=== PATIENT | female | born 1970 | race Caucasian/White ===

== ENCOUNTER → 2017-01-03 | Outpatient (CLI) | payer OTHER ==
--- NOTE | 2017-01-03 08:08 | US ---
EXAMINATION TYPE: US transvaginal DATE OF EXAM: 01/03/2017 COMPARISON: NONE CLINICAL HISTORY: Menometorragia N92.1. Patient states she is having heavy and long periods of bleedi ng TECHNIQUE: Transvaginal (TV) Date of LMP: About a month ago EXAM MEASUREMENTS: Uterus: 8.5 x 5.1 x 6.0 cm Endometrial Stripe: 0.6 cm Right Ovary: 2.7 x 1.1 x 1.4 cm Left Ovary: 1.7 x 0.9 x 1.2 cm 1. Uterus: Anteverted Bulky and heterogeneous. Multiple hypoechoic areas visualized, largest measu ring 3.1 x 3.0 x 2.8 cm, probably fibroids 2. Endometrium: wnl 3. Right Ovary: wnl as visualized, limited visualization due to overlying bowel 4. Left Ovary: Cystic area visualized measuring 0.7 x 0.7 x 0.6 cm 5. Bilateral Adnexa: wnl 6. Posterior cul-de-sac: wnl IMPRESSION: 1. Enlarged uterus with scattered hypoechoic areas which can be compatible with fibroids. The largest is approximately 3 cm in size.
== END | disposition home or self-care (01) ==
LOC: RADUSWWP 07:28
PROVIDERS: ATTEND Obstetrics & Gynecology
DX: N85.2 Hypertrophy of uterus (principal)
CPT/HCPCS: 76830

== ENCOUNTER → 2017-01-04 | Outpatient (CLI) | payer OTHER ==
--- NOTE | 2017-01-04 17:15 | MR ---
EXAMINATION TYPE: MR foot LT wo con DATE OF EXAM: 01/04/2017 COMPARISON: NONE HISTORY: Lt foot swelling, lump, post-op ganglion cyst removal. Extensor digitorum brevis nonhealing to bone versus possible ganglion cyst. Standard multiplanar, multisequence MRI departmental protocol Multiplanar, multisequence images of the left foot were acquired. Diffusion weighted imaging was perf ormed. FINDINGS: Superficial to the second cuneiform and deep to the superficial marker at the site of patie nt's known swelling there is a T2 hyperintense and T1 hypointense well-circumscribed multiloculated c ystic lesion representing a ganglion cyst. This is seen just deep to and elevates the extensor digito rum brevis. This measures 1.1 x 0.6 x 1.5 cm in transverse by anterior posterior by craniocaudal dime nsion. There is no localized edema within the osseous structures postoperatively. Degenerative changes demonstrated as osseous cysts are seen of the calcaneus at the sustentaculum vitaliy i. Ankle joint maintains normal alignment. Joint spaces are maintained. Flexor tendons appear unremarkab le. IMPRESSION: Multiloculated 1.1 cm ganglion cyst just superficial to the second cuneiform and elevating the extens or digitorum brevis.
== END ==
LOC: RADMRIMAIN 14:47
PROVIDERS: ATTEND Podiatrist Foot & Ankle Surgery
DX: M67.472 Ganglion, left ankle and foot (principal)

== ENCOUNTER → 2017-01-10 | Outpatient (CLI) | payer OTHER ==
[2017-01-10 15:52] LABS: CHCM 33.4; HCT 41.4 % (34.0-46.0); HDW 2.31; HGB 13.6 gm/dL (11.4-16.0); MCH 30.7 pg (25.0-35.0); MCHC 32.9 g/dL (31.0-37.0); MCV 93.4 fL (80.0-100.0); Mean Platelet Volume 7.8; RBC 4.43 m/uL (3.80-5.40); WBC 7.3 k/uL (3.8-10.6)
[2017-01-10 18:32] LABS: Estradiol 50.5 pg/mL
== END | disposition home or self-care (01) ==
LOC: LABWHC1 15:21
PROVIDERS: ATTEND Obstetrics & Gynecology
DX: N93.8 Other specified abnormal uterine and vaginal bleeding (principal)
CPT/HCPCS: 36415; 82670; 83001; 85027

== ENCOUNTER → 2017-01-24 | Outpatient (CLI) | payer OTHER ==
[2017-01-24 12:41] LABS: Basophils % (A) 0 %; CH 30.7; CHCM 33.1; Eosinophils # (A) 0.3 k/uL (0-0.7); Eosinophils % (A) 3 %; HCT 44.2 % (34.0-46.0); HGB 14.4 gm/dL (11.4-16.0); Luc # (Auto) 0.18; Luc % (Auto) 2; Lymphocytes # (A) 2.7 k/uL (1.0-4.8); Lymphocytes % (A) 27 %; MCH 30.3 pg (25.0-35.0); MCHC 32.5 g/dL (31.0-37.0); MCV 93.2 fL (80.0-100.0); Mean Platelet Volume 7.8; Monocytes # (A) 0.6 k/uL (0-1.0); Monocytes % (A) 7 %; Neutrophils # (A) 5.9 k/uL (1.3-7.7); Neutrophils % (A) 61 %; RBC 4.75 m/uL (3.80-5.40); RDW 12.9 % (11.5-15.5); WBC 9.7 k/uL (3.8-10.6); WBC (Perox) 9.71
[2017-01-24 13:10] LABS: Potassium 4.7 mmol/L (3.5-5.1)
== END | disposition home or self-care (01) ==
LOC: LABPAT 12:14
PROVIDERS: ATTEND Orthopaedic Surgery
DX: Z01.812 Encounter for preprocedural laboratory examination (principal); M75.41 Impingement syndrome of right shoulder
CPT/HCPCS: 36415; 80051; 85025

== ENCOUNTER 2017-02-08 06:25 | Day surgery (SDC) | payer OTHER ==
[2017-02-05 10:10] VITALS: BMI 24.1
--- NOTE | 2017-02-07 09:57 | HP ---
HISTORY AND PHYSICAL CHIEF COMPLAINT: Right shoulder pain. 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 She is having persistent pain with overhead use and at night. She has tried therapy in addition to medications with partial temporary relief. She is still significantly limited. PAST MEDICAL HISTORY: Past medical history is otherwise negative. PAST SURGICAL HISTORY: Significant for left hip arthroscopy and left foot surgery. CURRENT MEDICATIONS: Ibuprofen and control. ALLERGIES: She denies drug allergies. FAMILY HISTORY: Significant for cancer. SOCIAL HISTORY: Negative for current tobacco or alcohol use. REVIEW OF SYSTEMS: Sixteen-point review of systems otherwise reviewed and is noncontributory. PHYSICAL EXAMINATION: On examination, the patient is approximately 5 feet 1 inch, 128 pounds of mesomorphic habitus. HEENT exam is nonfocal. Neck is supple. On examination of the right shoulder, she is tender about the anterior subacromial space. She has mild subacromial crepitus. Active range of motion forward elevation 135 degrees, external rotation with the arm at side 65 degrees, internal rotation to T12. Passively I am able to forward elevate her to 150 degrees. External rotation with the arm at side is 5- over 5. Abduction is 5- over 5. Impingement, Neer tests are positive. Her distal neurovascular exam otherwise appears intact in the right upper extremity. MRI report for the right shoulder from 01/02/2017 shows evidence of a partial tear of the supraspinatus. IMPRESSION: Right shoulder impingement with symptomatic rotator cuff tear. RECOMMENDATIONS: I talked to the patient at length regarding her treatment options. At this point, she is quite symptomatic despite conservative measures. After thorough discussion, she opts to proceed with surgery. We will plan to proceed with arthroscopic evaluation with probable subacromial decompression in addition to possible arthroscopic rotator cuff repair versus debridement. Risks and benefits were discussed at length in layman's terms. We will likely perform that as an outpatient procedure. MMODL / IJN: [id number] /
[~2017-02-08 06:25] MED LIST: DEXAMETHASONE SOD PHOSPHATE 10 MG/ML 1 ML VIAL IV ONE; HYDROmorphone 0.5 MG/0.5 ML SYRINGE IVP PRN; LACTATED RINGERS 1,000 ML IV SCH; MIDAZOLAM 2 MG/2 ML VIAL IV PRN; ONDANSETRON 4 MG/2 ML VIAL IVP ONE; ceFAZolin 1,000 MG in DEXTROSE/WATER 1 50ML.BAG IV ONE
[2017-02-08 07:09] VITALS: RESP 16
[2017-02-08] MEDS ORDERED: LIDOCAINE 1% 20 ML VIAL (10MG/ML) FOR IV START INTRADERMA ONE (07:11)
[2017-02-08] MEDS ORDERED: MIDAZOLAM 2 MG/2 ML VIAL IVP ONE (07:20)
[2017-02-08] MEDS ORDERED: fentaNYL (PF) 50 MCG/ML 2 ML AMP IVP ONE (07:27)
--- NOTE | 2017-02-08 07:50 | P.ONQ ---
Anesthesiology Proc Note - PNB - Peripheral Nerve Block Performed Right Interscalene Indication: Acute Post-Operative Pain, Requested by physician (DR Barrera) Sedation Type: Sedate with meaningful contact maintained Preparation: Sterile Prep Position: Supine Catheter: None Needle Types: Other (see comment) (Yonathan) Needle Size: 50mm (2") Technique: Ultrasound Injectate: 0.5% Ropivacaine (see comment for volume) (13cc Ropivacaine, 13cc Lidocaine 2%) Adjunct: Epinephrine (see comment for dilution ratio) (1:100,00) Blood Aspirated: No Pain Paresthesia on Injection Noted: No Resistance on Injection: Normal Events: Uneventful and Well Tolerated
[2017-02-08] MEDS ORDERED: SUCCINYLCHOLINE CHLORIDE 100 MG/5 ML SYR IV ONE (08:00)
[2017-02-08] MEDS ORDERED: LIDOCAINE 1% INJ 10MG/ML (20 ML MDV) ONE (08:00)
[2017-02-08] MEDS ORDERED: PHENYLEPHRINE-0.9% NACL SYG 1 MG/10 ML SYRINGE ONE (08:00)
[2017-02-08] MEDS ORDERED: LIDOCAINE 2%-EPI 1:100,000 20 ML VIAL ONE (08:00)
[2017-02-08] MEDS ORDERED: MIDAZOLAM 2 MG/2 ML VIAL ONE (08:00)
[2017-02-08] MEDS ORDERED: ePHEDrine SULFATE/0.9% NACL/PF 50 MG/5 ML SYRINGE IV ONE (08:00)
[2017-02-08] MEDS ORDERED: PROPOFOL 10 MG/ML 20 ML VIAL IV ONE (08:00)
[2017-02-08] MEDS ORDERED: fentaNYL (PF) 50 MCG/ML 2 ML AMP ONE (08:00)
[2017-02-08] MEDS ORDERED: ROPIVACAINE 5 MG/ML 30 ML VIAL ONE (08:00)
[2017-02-08] MEDS ORDERED: EPINEPHrine (PF) 1 ML in SODIUM CHLORIDE 0.9% IRRIGATIO 3,000 ML IRRIGATION ONE ×8 (08:29)
[2017-02-08] MEDS ORDERED: LACTATED RINGERS 1,000 ML IV ONE (08:45)
[2017-02-08 09:27] VITALS: TEMP 97.3
--- NOTE | 2017-02-08 09:30 | P.OP ---
Date of Procedure: 02/08/17 Preoperative Diagnosis: symptomatic right rotator cuff tear Postoperative Diagnosis: 1 cm rotator cuff tear involving the supraspinatus/type II SLAP lesion/ bicipital tendinosis Procedure(s) Performed: right shoulder arthroscopic subacromial decompression/rotator cuff repair/ biceps tenotomy/superior labral debridement Implants: Mitek 4.75 mm corkscrew anchor Anesthesia: ALEX, jarod Surgeon: Darrel Barrera Motion Graphics Designer #1: Kunal Santacruz Estimated Blood Loss (ml): 10 Pathology: none sent Condition: stable Disposition: PACU Indications for Procedure: The patient's a 46-year-old [id number] female who presents with progressive right shoulder pain after a previous fall. She tried extensive conservative treatment with persistence of her symptoms. A discussion of the risks and benefits of operative intervention versus continued conservative measures was made with the patient. She opted to proceed with surgery. Operative risks to include infection, neurovascular injury, development of blood clots, possible tendon rerupture, possible postoperative stiffness and need for subsequent procedures was discussed. Informed consent was obtained. Operative Findings: as below Description of Procedure: the patient was brought to the operating room, and after induction of general anesthesia was placed into a beachchair position. The bony prominences were appropriately padded. I examined the right shoulder. There was no gross block to passive motion. There is no gross glenohumeral instability. The right upper extremity was prepped and draped in normal fashion. The bony outlines the acromion, distal clavicle, and coracoid process were outlined with a skin marker. The glenoid humeral joint was inflated with 50 mL of saline utilizing a spinal needle from posterior approach. A posterior portal was made through a 5 mm skin incision 1 cm medial and inferior to the posterior lateral border of the acromion. A blunt trocar was used to easily into the joint. Diagnostic arthroscopy was performed. An anterior portals made just lateral to the coracoid process entering the joint above the subscapularis tendon. On inspection the anterior labrum that was intact. The subscapularis was intact. On inspection superior labrum there was a type II SLAP lesion with instability. There is also significant intra-articular biceps tendinosis. it was elected to proceed with tenotomy at this point. The biceps tendon was released from the superior labrum with electrocautery allowed to retract the bicipital groove. The superior labrum was debrided back to stable base with a motorized shaver. The posterior labrum was intact. No significant chondral injury involving humeral head or glenoid was noted. The inferior recess was inspected. the rotator cuff was inspected. There was a full-thickness tear involving the anterior aspect the supraspinatus. The edges were debrided with a motorized shaver. The arthroscope was then placed into the subacromial space.a lateral portal was made through a 5 minute incision 2 cm inferior to the anterolateral border of the acromion. The soft tissue on the undersurface the acromion was debrided with a motorized shaver and with electrocautery clearly defining the anterior medial and lateral borders as well as the distal clavicle. The coracoacromial ligament was detached from the anterior acromion with electrocautery. An anterior inferior acromioplasty is performed with a motorized tono starting anterolateral, then extending this posteriorly, then extending this medially. Is able to convert to a flat acromion. This was verified from the posterior and lateral viewing portals. The rotator cuff was inspected. The bursal tissue was debrided with a motorized shaver. the rotator cuff was inspected. The rotator cuff tear involving the anterior supraspinatus measuring proximal 1 cm was clearly defined. The soft tissue over the greater tuberosity was removed with a motorized shaver lightly decorticating the tuberosity.the rotator cuff was easily mobilized back to its [place] footprint. A scorpion suture passer was used to pass a fiber tape through the rotator cuff. An additional fiber Link was passed. A lateral anchor was placed utilizing the appropriate starting awl. The lateral anchor was 4.75 mm in diameter. The suture was appropriately tensioned. Good purchase was obtained. Final arthroscopic view showed adequate mu-ism of the [place] footprint with compression. The arthroscope was then removed. The portals were closed with simple 3-0 nylon suture. A sterile dressing was applied in addition to a brace. The patient was awoken from general anesthesia and transferred to the recovery room in good condition. Blood loss was estimated at 10 mL. No complications were incurred. Sponge and needle counts were correct in the case.
[2017-02-08] MEDS ORDERED: MEPERIDINE 50 MG/ML SYRINGE IVP ONE (09:50)
[2017-02-08 11:19] VITALS: BP 135/79; PULSE 80
== END 2017-02-08 12:01 | disposition home or self-care (01) ==
LOC: OR 06:25
PROVIDERS: ATTEND Orthopaedic Surgery
DX: M75.101 Unspecified rotator cuff tear or rupture of right shoulder, not specified as traumatic (principal); S43.431A Superior glenoid labrum lesion of right shoulder, initial encounter; X58.XXXA Exposure to other specified factors, initial encounter; M75.21 Bicipital tendinitis, right shoulder; Z79.3 Long term (current) use of hormonal contraceptives; Z79.1 Long term (current) use of non-steroidal anti-inflammatories (NSAID); Z79.2 Long term (current) use of antibiotics; Z79.891 Long term (current) use of opiate analgesic; Z88.5 Allergy status to narcotic agent
CPT/HCPCS: 29826; 29827; 64415; 81025; C1713 ×2; C1894; J2250; J1100; J2175; J2405; J0171; J2001; J3010; J0690; J2795; J2370; J0330; J2704

== ENCOUNTER 2017-02-22 05:59 | Day surgery (SDC) | payer OTHER ==
[2017-02-20 13:51] VITALS: BMI 24.1
--- NOTE | 2017-02-21 08:29 | P.HPOB ---
History of Present Illness H&P Date: 02/21/17 Chief Complaint: Menorrhagia, uterine fibroids This patient is a pleasant 46 yr female who has had persistent menorrhagia and DUB. Evaluation has show multiple small fibroids and a normal endometrial biopsy. She has been on OCPs without relief. She now presents for an endometrial ablation for further treatment. Review of Systems Constitutional: Denies chills, Denies fever Cardiovascular: Denies chest pain, Denies shortness of breath Respiratory: Denies cough Gastrointestinal: Denies abdominal pain, Denies diarrhea, Denies nausea, Denies vomiting Genitourinary: Reports as per HPI, Reports menorrhagia Menstruation: Reports menses 8 or > days, Reports menses variable, Reports period heavy Past Medical History Past Medical History: Asthma, Osteoarthritis (OA) Additional Past Medical History / Comment(s): irregular menses; uterine fibroids , genital HSV History of Any Multi-Drug Resistant Organisms: None Reported Past Surgical History: Section, Orthopedic Surgery Additional Past Surgical History / Comment(s): tendon release left hip, LT foot surg. RT ROTATOR CUFF SX-02/08/17; ovarin cystectomy Past Anesthesia/Blood Transfusion Reactions: Postoperative Nausea & Vomiting ( PONV) Smoking Status: Never smoker Past Alcohol Use History: None Reported Past Drug Use History: None Reported - Past Family History Father Family Medical History: Cancer Medications and Allergies Home Medications Medication Instructions Recorded Confirmed Type Ibuprofen 1 tab PO TID PRN 02/08/17 02/20/17 History Allergies Allergy/AdvReac Type Severity Reaction Status Date / Time morphine AdvReac Nausea & Verified 02/20/17 13:46 Vomiting Exam - OBG Physical Exam Abdomen: bowel sounds normal, no diffuse tenderness, no bruit present, no guarding noted, no hepatomegaly, no splenomegaly, no mass Vagina: normal moisture, no discharge Cervix: no lesion, no discharge Uterus: enlarged Adnexa: both: normal Results Endometrial biopsy on 01/10/2017 was normal, possible polyp. Ultrasound on 2016 showed multiple fibroids, largest 3cm. Assessment and Plan (1) Menorrhagia Narrative/Plan: This is a pleasant 46 yr female with persistent menorrhagia/DUB and known uterine fibroids. She is presenting for hysteroscopy, D&C, and Novasure endometrial ablation for treatment. I have discussed this surgery and risks: infection, bleeding, possible uterine perforation and/or thermal injury. All of the patients questions were answered and a written consent obtained. Status: Chronic Code(s): N92.0 - EXCESSIVE AND FREQUENT MENSTRUATION WITH REGULAR CYCLE SNOMED Code(s): 602826597 (2) Uterine fibroid Status: Chronic Code(s): D25.9 - LEIOMYOMA OF UTERUS, UNSPECIFIED SNOMED Code(s): 25296093
[~2017-02-22 05:59] MED LIST changes: -HYDROmorphone 0.5 MG/0.5 ML SYRINGE IVP PRN; -LACTATED RINGERS 1,000 ML IV SCH; +Pre Op ABX Message 1 EACH MISC MISCELLANE ONE; +SCOPOLAMINE 1.5MG/72HR PATCH TRANSDERM ONE; -ceFAZolin 1,000 MG in DEXTROSE/WATER 1 50ML.BAG IV ONE; +fentaNYL (PF) 50 MCG/ML 2 ML AMP IV PRN
[2017-02-22 06:26] VITALS: TEMP 98.8
[2017-02-22] MEDS: LACTATED RINGERS 1,000 ML IV SCH ×2 (06:40→09:11)
[2017-02-22] MEDS ORDERED: LIDOCAINE 1% 20 ML VIAL (10MG/ML) FOR IV START INTRADERMA ONE (06:41)
[2017-02-22] MEDS ORDERED: fentaNYL (PF) 50 MCG/ML 2 ML AMP ONE (06:49)
[2017-02-22] MEDS ORDERED: KETOROLAC 30 MG/ML 1 ML VIAL ONE (06:49)
[2017-02-22] MEDS ORDERED: PROPOFOL 10 MG/ML 20 ML VIAL IV ONE (06:49)
[2017-02-22] MEDS ORDERED: MIDAZOLAM 2 MG/2 ML VIAL ONE (06:49)
[2017-02-22] MEDS ORDERED: LIDOCAINE 1% INJ 10MG/ML (20 ML MDV) ONE (06:49)
--- NOTE | 2017-02-22 07:35 | P.OP ---
Date of Procedure: 02/22/17 Preoperative Diagnosis: menorrhagia and uterine fibroids Postoperative Diagnosis: same Procedure(s) Performed: #1:hysteroscopy. #2: Dilation and curettage. #3: NovaSure endometrial ablation. Anesthesia: MAC Surgeon: Jerry Caballero Estimated Blood Loss (ml): 5 Urine output (ml): 10 Pathology: other (uterine curettings) Condition: stable Disposition: PACU Indications for Procedure: Please see dictated H&P for intimate details of this patient's admission. Brief summary this is a pleasant 46-year-old multiparous patient who's had refractory menorrhagia, dysfunctional uterine bleeding, and known uterine fibroids. Patient presents now for trial of NovaSure endometrial ablation for treatment. Patient does understand the surgery and risks including risks of infection, bleeding, possible uterine perforation, and/or thermal injury. All the patient's questions are answered and a written consent is obtained. Operative Findings: this patient had a normal-appearing endometrial cavity there was some impingement of the endometrium by uterine fibroids. Description of Procedure: This patient is taken to the operating room and laid in the supine position. She subsequently undergoes general mask anesthesia without incident. At this time we carefully position her because she's had 2 orthopedic surgeries in the last 4 weeks. She is carefully placed in the dorsal lithotomy position. A vaginal perineal prep was then done. Examination under anesthesia shows the uterus to be mid position and slightly enlarged. This time I drain the bladder for 10 mL of clear urine. Weighted speculum was placed in the posterior vagina. The anterior lip of the cervix at that time was then grasped with an Allis clamp. I gently sound the uterus to 9 cm. The endocervix was then dilated enough to allow the hysteroscope easily and the uterine cavity. Hysteroscopy is then performed with saline solution. The endometrial cavity does not show any polyps. There is some impingement of her fibroids and endometrial cavity but in general it appears mostly clear. At this time the cervix is dilated more to allow a small curette easily uterine cavity. A gentle but thorough 4 quadrant curettage is then done. With this completed the NovaSure device is then opened it appears to be intact. It is set at a length of 6.0 cm. It is seated in place to a width of 3.3 cm. It is then enabled for approximately 57 seconds after passing the cavity integrity test. The NovaSure device is then removed and appears to be intact. Hysteroscopy is then performed again and the uterine cavity appears to be completely ablated up to the endocervix. With this done the procedure is then ended. The Allis clamp and weighted speculum were removed. All counts are correct 3. There are no complications. Patient is awakened from anesthesia and taken to the recovery room in satisfactory condition.
[2017-02-22 07:50] VITALS: RESP 18
[2017-02-22] MEDS ORDERED: Acetaminophen-Codeine 300-30mg TAB PO ONE (09:02)
[2017-02-22 09:53] VITALS: BP 123/74; PULSE 78
== END 2017-02-22 09:55 | disposition home or self-care (01) ==
LOC: OR 05:59
PROVIDERS: ATTEND Obstetrics & Gynecology
DX: N85.01 Benign endometrial hyperplasia (principal); N92.0 Excessive and frequent menstruation with regular cycle; D25.9 Leiomyoma of uterus, unspecified; J45.909 Unspecified asthma, uncomplicated; M19.90 Unspecified osteoarthritis, unspecified site; Z88.5 Allergy status to narcotic agent; Z86.19 Personal history of other infectious and parasitic diseases; Z80.9 Family history of malignant neoplasm, unspecified
CPT/HCPCS: 58563; 81025; 88305; J2250; J1100; J2405; J2001; J3010; J1885; J2704

== ENCOUNTER → 2017-04-16 | Outpatient (CLI) | payer OTHER ==
[2017-04-16 13:37] LABS: Basophils # (A) 0.1 k/uL (0-0.2); Basophils % (A) 1 %; Eosinophils # (A) 0.2 k/uL (0-0.7); Eosinophils % (A) 2 %; HCT 42.8 % (34.0-46.0); HGB 13.8 gm/dL (11.4-16.0); Lymphocytes # (A) 2.1 k/uL (1.0-4.8); Lymphocytes % (A) 25 %; MCH 29.4 pg (25.0-35.0); MCHC 32.2 g/dL (31.0-37.0); MCV 91.2 fL (80.0-100.0); Mean Platelet Volume 7.6; Monocytes # (A) 0.5 k/uL (0-1.0); Monocytes % (A) 6 %; Neutrophils # (A) 5.5 k/uL (1.3-7.7); Neutrophils % (A) 65 %; Platelet Count 316 k/uL (150-450); RDW 13.4 % (11.5-15.5); WBC 8.4 k/uL (3.8-10.6)
[2017-04-16 13:40] LABS: Anion Gap 8 mmol/L; Blood Urea Nitrogen 16 mg/dL (7-17); Calcium 9.9 mg/dL (8.4-10.2); Carbon Dioxide 30 mmol/L (22-30); Chloride 103 mmol/L (98-107); Glucose 98 mg/dL (74-99); Potassium 4.8 mmol/L (3.5-5.1); Sodium 141 mmol/L (137-145)
== END | disposition home or self-care (01) ==
LOC: LABPAT 13:12
PROVIDERS: ATTEND Obstetrics & Gynecology
DX: Z01.812 Encounter for preprocedural laboratory examination (principal)
CPT/HCPCS: 36415; 80048; 85025; 86850; 86900; 86901

== ENCOUNTER 2017-04-22 06:29 | Day surgery (SDC) | payer OTHER ==
[2017-04-10 10:12] VITALS: BMI 24.1
[~2017-04-22 06:29] MED LIST changes: +LIDOCAINE 1% 20 ML VIAL (10MG/ML) FOR IV START INTRADERMA PRN; -MIDAZOLAM 2 MG/2 ML VIAL IV PRN; -Pre Op ABX Message 1 EACH MISC MISCELLANE ONE; +ceFAZolin IN SWFI 2 GM/20 ML SYRINGE IVP ONE; -fentaNYL (PF) 50 MCG/ML 2 ML AMP IV PRN
[2017-04-22] MEDS: LACTATED RINGERS 1,000 ML IV SCH ×2 (07:05→20:13)
[2017-04-22] MEDS ORDERED: MIDAZOLAM 2 MG/2 ML VIAL IV ONE (07:11)
[2017-04-22] MEDS ORDERED: BUPIVACAINE (PF) 0.25% 30 ML VIAL SQ ONE ×2 (07:31→08:11)
[2017-04-22] MEDS ORDERED: SODIUM CHLORIDE 0.9% 50 ML with ceFAZolin 2,000 MG IV ONE ×2 (07:43)
[2017-04-22] MEDS ORDERED: HYDROmorphone (PF) 1 MG/ML ONE (07:43)
[2017-04-22] MEDS ORDERED: PROPOFOL 10 MG/ML 20 ML VIAL IV ONE (07:43)
[2017-04-22] MEDS ORDERED: NEOSTIGMINE 1 MG/ML 10 ML VIAL ONE (07:43)
[2017-04-22] MEDS ORDERED: GLYCOPYRROLATE 0.2 MG/ML 2 ML VIAL ONE (07:43)
[2017-04-22] MEDS ORDERED: ESMOLOL 100 MG/10 ML VIAL ONE (07:43)
[2017-04-22] MEDS ORDERED: SUCCINYLCHOLINE CHLORIDE 100 MG/5 ML SYR IV ONE (07:43)
[2017-04-22] MEDS ORDERED: ePHEDrine SULFATE/0.9% NACL/PF 50 MG/5 ML SYRINGE IV ONE (07:43)
[2017-04-22] MEDS ORDERED: MIDAZOLAM 2 MG/2 ML VIAL ONE (07:43)
[2017-04-22] MEDS ORDERED: LIDOCAINE 1% INJ 10MG/ML (20 ML MDV) ONE (07:43)
[2017-04-22] MEDS ORDERED: fentaNYL (PF) 50 MCG/ML 2 ML AMP ONE (07:43)
[2017-04-22] MEDS ORDERED: VECURONIUM 10 MG VIAL IV ONE (07:43)
[2017-04-22] MEDS ORDERED: SIMETHICONE 80 MG CHEWABLE PO PRN (09:15)
[2017-04-22] MEDS ORDERED: ONDANSETRON 4 MG/2 ML VIAL IVP PRN (09:15)
[2017-04-22] MEDS ORDERED: Acetaminophen-Codeine 300-30mg TAB PO PRN ×2 (09:15)
--- NOTE | 2017-04-22 09:25 | P.OP ---
Date of Procedure: 04/22/17 Preoperative Diagnosis: Complex hyperplasia with pelvic pain Postoperative Diagnosis: Same with significant adhesions of the sigmoid colon to the left ovary and posterior uterus Procedure(s) Performed: Robotic-assisted laparoscopic hysterectomy with lysis of adhesions Anesthesia: ALEX Surgeon: Pascual Lee Financial Legal Assistant #1: Myrtle Garcia Estimated Blood Loss (ml): 300 IV fluids (ml): 650 Urine output (ml): 75 Pathology: other (Uterus cervix fallopian tubes and ovaries) Condition: stable Disposition: floor Operative Findings: Significant adhesions of the omentum and sigmoid colon to the left ovary and posterior uterus also noted fibroid on the posterior uterus Description of Procedure: Patient was taken to the operating suite where a general anesthetic was found be adequate. She was prepped and draped in normal sterile fashion and placed in dorsal lithotomy position. Initially a weighted speculum was inserted into the vagina and the anterior lip of the cervix was identified and grasped with a single-tooth tenaculum. Cervix was then dilated and sounded to 10 cm. Using a 10 cm down and a 3 cm cup the Rhiannon manipulator was inserted without difficulty with sutures placed at 3 and 9 to help removal of the uterus. Speculum and tenaculum were then removed and a Tavarez cath was placed. Gloves were changed and attention was turned to the abdominal portion of the procedure where 2 mL of quarter percent Marcaine was injected periumbilically. Through this injected anesthetic a 5 mm skin incision was made and through this incision under direct visualization with an optical trocar and sleeve the camera was inserted. Once peritoneal placement was assured gas allowed to fully insufflate the abdomen and patient's placement steep Trendelenburg position. First right and left ports were placed through 8 mm skin incisions 10 cm lateral to the umbilicus these were inserted under direct visualization and were da [place]man ports. A fourth port and sleeve were inserted through a 1 cm incision between the left lateral and medial port. Once ports were placed robot was brought in and docked and the one arm a scissor was placed in the 2 arm a [place] grasper. At this point I broke scrub console. Observations pelvis were noted. Significant adhesions of the omentum and sigmoid colon were noted to be present attached to the left ovary and posterior uterus these were bluntly and sharply dissected free by elevating the tissues and them gently. Occasionally cauterization was done to clear some of the adhesions. Mostly these were filmy and were easily dissected out of the operative field. Once this was completed did did allow for visualization of the infundibular pelvic ligament which was then identified cauterized and cut broad and the tissues moving superiorly towards the uterus were also cauterized and cut allowing us to free the left ovary. Round ligament was then identified cauterized and cut and the anterior posterior leafs of the broad ligament were transected and bluntly dissected and sharply dissected to skeletonize the vascularity. Vessel left sided uterus was then cauterized. Bladder flap was then identified and undermined with [place] and incised with scissors. This tissue was carried across face of the uterus in a similar fashion to remove the bladder from the operative field. Once accomplished attention was turned the right side of the uterus which in similar fashion tissues were developed. Once both sides were matched balloon was blown up in the Rhinanon manipulator and an anterior colpotomy was made. Following a likewise motion cheating head when necessary to help maintain hemostasis the cup was followed around incising with the scissor circumferentially. There was some bleeding noted from a blood vessel along the left border of the uterus along the pedicle which was cauterized with [place] grasper. Once 360 was completed uterus was brought into the vagina to maintain pneumoperitoneum. Pelvis was then irrigated this fluid was suctioned out. Once hemostasis was felt to be adequate instruments were exchanged for a Luis grasper and a make suture cut and the vaginal cuff was closed in a running fashion with to OB lock suture. Once this was accomplished pelvis was again irrigated once excellent hemostasis was felt to be obtained instruments were removed and gas was allowed to expel from the abdomen. 5 deep breaths provided during this process and Dr. Garcia then closed incision subcuticularly and the remaining 8 mL of quarter percent Marcaine was injected around these incisions. At the same time I did do a cystoscopy and excellent flow was noted from both ureteral jets. Tavarez cath was then replaced sponge, lap, needle counts were all correct 2. Patient was then taken to the recovery room in stable and satisfactory condition.
[2017-04-22] MEDS: HYDROmorphone 0.5 MG/0.5 ML SYRINGE IVP PRN ×4 (09:31→09:57)
[2017-04-22] MEDS: KETOROLAC 30 MG/ML 1 ML VIAL IVP PRN ×2 (11:12→16:27)
[2017-04-22] MEDS ORDERED: SENNOSIDES-DOCUSATE SODIUM 1 EACH TAB PO SCH (21:00)
[2017-04-23 08:18] VITALS: BP 99/60; PULSE 87; RESP 15; TEMP 98.7
[2017-04-23 08:27] LABS: Basophils # (A) 0.1 k/uL (0-0.2); Basophils % (A) 0 %; Eosinophils # (A) 0.4 k/uL (0-0.7); Eosinophils % (A) 3 %; HCT 34.6 % (34.0-46.0); HGB 11.2 gm/dL (11.4-16.0); Lymphocytes # (A) 2.1 k/uL (1.0-4.8); Lymphocytes % (A) 17 %; MCH 29.6 pg (25.0-35.0); MCHC 32.5 g/dL (31.0-37.0); MCV 91.2 fL (80.0-100.0); Mean Platelet Volume 7.9; Monocytes # (A) 0.8 k/uL (0-1.0); Monocytes % (A) 6 %; Neutrophils # (A) 8.9 k/uL (1.3-7.7); Neutrophils % (A) 73 %; Platelet Count 242 k/uL (150-450); RBC 3.79 m/uL (3.80-5.40); RDW 14.1 % (11.5-15.5); WBC 12.2 k/uL (3.8-10.6)
--- NOTE | 2017-04-23 08:37 | P.DS ---
Providers Expected date of discharge: 04/23/17 Attending physician: Pascual Lee Primary care physician: Stated None Hospital Course: Consuelo is doing very well postop day 1. She is ambulating, voiding, and she is tolerating her diet. She voices no plates. Vital signs are stable and afebrile. Heart regular, lungs clear, extremities without pain. Abdomen soft incisions are intact. Assessment postop day 1. Plan discharged home follow up with me in 1 week. Discharge instructions were thoroughly reviewed and prescriptions for Tylenol No. 3 and Motrin are provided. All the questions are answered for her at this time and she is acutely aware to have complete pelvic rest. Patient Condition at Discharge: Good Plan - Discharge Summary Discharge Rx Participant: Yes New Discharge Prescriptions: New Acetaminophen-Codeine 300-30mg [Tylenol #3] 1 tab PO Q4H PRN #30 tablet PRN Reason: Pain Ibuprofen [Motrin] 600 mg PO Q6HR PRN #30 tab PRN Reason: Pain No Action Acetaminophen Tab [Tylenol Tab] 1,000 mg PO DAILY Discharge Medication List Acetaminophen Tab [Tylenol Tab] 1,000 mg PO DAILY 04/10/17 [History] Acetaminophen-Codeine 300-30mg [Tylenol #3] 1 tab PO Q4H PRN #30 tablet [Rx] Ibuprofen [Motrin] 600 mg PO Q6HR PRN #30 tab 04/23/17 [Rx] Follow up Appointment(s)/Referral(s): Pascual Lee DO [Doctor of Osteopathic Medicine] - 1 Week Activity/Diet/Wound Care/Special Instructions: No heavy lifting, limit stairs and driving and pelvic rest. If any high temperatures, heavy bleeding, or severe pain call my office
--- NOTE | 2017-05-01 20:17 | P.HPOB ---
History of Present Illness H&P Date: 04/25/17 Chief Complaint: Uterine hyperplasia with atypia Consuelo is a 46-year-old female who underwent a endometrial ablation for dysfunctional uterine bleeding. The tissue sample from that procedure done by Dr. Caballero revealed unfortunately complex hyperplasia without atypia. This sampling requires a hysterectomy and does carry a risk of concurrent cancer. A lengthy discussion was held between both her primary cost coordinator and myself on treatment options and she is opted for a robotic-assisted laparoscopic hysterectomy with I lateral salpingo-oophorectomy. Risks/benefits/alternatives to this procedure were discussed with the patient in detail and all questions were answered for her prior to proceeding to the operating room. These did include but were not limited to damage to bladder, bowel, vascular injuries, nerve damage, bleeding, infection. On physical exam vital signs are otherwise stable and afebrile. Heart regular, lungs clear, extremities without pain. Pelvic exam is otherwise unremarkable and her abdomen is soft with positive bowel sounds. Assessment complex hyperplasia land robotic-assisted laparoscopic hysterectomy with bilateral salpingo-oophorectomy Past Medical History Past Medical History: Asthma, Osteoarthritis (OA) Additional Past Medical History / Comment(s): Hx exercise induced asthma. History of Any Multi-Drug Resistant Organisms: None Reported Past Surgical History: Orthopedic Surgery Additional Past Surgical History / Comment(s): Tendon release left hip, foot surgery, rotator cuff right shoulder. Past Anesthesia/Blood Transfusion Reactions: Postoperative Nausea & Vomiting ( PONV) Past Psychological History: No Psychological Hx Reported Smoking Status: Never smoker Past Alcohol Use History: Occasional Past Drug Use History: None Reported - Past Family History Father Family Medical History: Cancer Medications and Allergies Home Medications Medication Instructions Recorded Confirmed Type Acetaminophen Tab [Tylenol Tab] 1,000 mg PO DAILY 04/10/17 04/22/17 History Acetaminophen-Codeine 300-30mg 1 tab PO Q4H PRN #30 tablet 04/23/17 Rx [Tylenol #3] Ibuprofen [Motrin] 600 mg PO Q6HR PRN #30 tab 04/23/17 Rx Allergies Allergy/AdvReac Type Severity Reaction Status Date / Time morphine AdvReac Nausea & Verified 04/22/17 06:48 Vomiting Exam Osteopathic Statement: *. No significant issues noted on an osteopathic structural exam other than those noted in the History and Physical/Consult. Results Result Diagrams: 04/23/17 08:11
== END 2017-04-23 10:30 | disposition home or self-care (01) ==
LOC: OR 06:29 → 4FBP 09:20 → OR 04-23 10:30
PROVIDERS: ATTEND Obstetrics & Gynecology
DX: D25.0 Submucous leiomyoma of uterus (principal); N83.01 Follicular cyst of right ovary; N73.6 Female pelvic peritoneal adhesions (postinfective); N85.01 Benign endometrial hyperplasia; Z88.5 Allergy status to narcotic agent; Z79.899 Other long term (current) drug therapy
CPT/HCPCS: 81025; 86900; 86901; 85025; 86850; 88309; 58571; 49329; J2250; J1100; J2710; J2405; J2001; J3010; J1885; J1170 ×2; J0690; J0330; J2704

== ENCOUNTER → 2018-04-16 | Outpatient (CLI) | payer OTHER ==
[2018-04-16 16:48] LABS: Basophils % (A) 0 %; Eosinophils # (A) 0.3 k/uL (0-0.7); Eosinophils % (A) 3 %; HCT 43.7 % (34.0-46.0); HGB 13.8 gm/dL (11.4-16.0); Lymphocytes # (A) 2.4 k/uL (1.0-4.8); Lymphocytes % (A) 26 %; MCHC 31.6 g/dL (31.0-37.0); MCV 91.7 fL (80.0-100.0); Monocytes # (A) 0.5 k/uL (0-1.0); Monocytes % (A) 5 %; Neutrophils # (A) 5.8 k/uL (1.3-7.7); Neutrophils % (A) 63 %; Platelet Count 319 k/uL (150-450); RBC 4.77 m/uL (3.80-5.40); RDW 12.7 % (11.5-15.5); WBC 9.2 k/uL (3.8-10.6)
[2018-04-16 16:57] LABS: Potassium 4.9 mmol/L (3.5-5.1)
== END ==
LOC: LABPAT 15:49
PROVIDERS: ATTEND Orthopaedic Surgery
DX: Z01.812 Encounter for preprocedural laboratory examination (principal); M23.91 Unspecified internal derangement of right knee
CPT/HCPCS: 36415; 80051; 85025

== ENCOUNTER → 2018-05-09 | Day surgery (SDC) | payer OTHER ==
[2018-05-07 12:09] VITALS: BMI 24.1
--- NOTE | 2018-05-08 18:06 | HP ---
HISTORY AND PHYSICAL CHIEF COMPLAINT: Right knee pain. 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 She is having giving-out symptoms and night symptoms along with swelling and pain with normal activities that limit her. She has had a previous injection along with medications, with only partial temporary relief. PAST MEDICAL HISTORY: Otherwise negative. PAST SURGICAL HISTORY: Significant for previous left hip arthroscopy and left foot surgery. CURRENT MEDICATIONS: control and ibuprofen. ALLERGIES: NO KNOWN DRUG ALLERGIES. FAMILY HISTORY: Significant for cancer. SOCIAL HISTORY: Negative for current tobacco or alcohol use. REVIEW OF SYSTEMS: Sixteen-point review of systems is otherwise reviewed and is noncontributory. PHYSICAL EXAMINATION: The patient is approximately 5 feet 1 inch, 128 pounds of mesomorphic habitus. HEENT exam is nonfocal. NECK: Supple. She has painless passive motion of the right hip. Straight-leg raise is negative. Active motion of right knee minus 6 to 134 degrees of flexion. She is tender about the lateral greater than medial joint line. She has trace effusion. Collaterals are stable, Clinton's negative, Khai's with medial and lateral pain. Her distal neurovascular otherwise appears to be intact in the right lower extremity. MRI report of the right knee shows questionable possible partial ACL sprain along with moderate patellofemoral compartment osteoarthrosis. IMPRESSION: Internal derangement of right knee with possible patellar chondral injury and possible medial meniscal tear. RECOMMENDATIONS: I talked to the patient at length regarding her condition and treatment options. At this point she is having persistent pain and mechanical symptoms despite conservative measures. After thorough discussion, she opts to proceed with surgery. We will plan to proceed with arthroscopic evaluation with possible patellar chondroplasty in addition to possible partial medial meniscectomy. We will likely perform that as an outpatient procedure. Risks and benefits were discussed at length in layman's terms. MMODL / IJN: [id number] /
[~2018-05-09] MED LIST changes: +EPINEPHrine (PF) 1 ML in SODIUM CHLORIDE 0.9% IRRIGATIO 3,000 ML IRRIGATION ONE; +HYDROcodone/APAP 5-325MG 1 EACH TAB PO ONE; +KETOROLAC 30 MG/ML 1 ML VIAL ONE; +LACTATED RINGERS 1,000 ML IV SCH; +LIDOCAINE 1% 20 ML VIAL (10MG/ML) FOR IV START INTRADERMA ONE; -LIDOCAINE 1% 20 ML VIAL (10MG/ML) FOR IV START INTRADERMA PRN; +LIDOCAINE 1% INJ 10MG/ML (20 ML MDV) ONE; +MEPERIDINE 50 MG/ML SYRINGE IVP ONE; +MIDAZOLAM 2 MG/2 ML VIAL IV PRN; +MIDAZOLAM 2 MG/2 ML VIAL ONE; +PROPOFOL 10 MG/ML 20 ML VIAL IV ONE; +ceFAZolin 1,000 MG in DEXTROSE/WATER 1 50ML.BAG IVPB ONE; -ceFAZolin IN SWFI 2 GM/20 ML SYRINGE IVP ONE; +fentaNYL (PF) 50 MCG/ML 2 ML AMP ONE
--- NOTE | 2018-05-09 08:53 | P.OP ---
Date of Procedure: 05/09/18 Preoperative Diagnosis: Right knee internal derangement Postoperative Diagnosis: Right knee grade 2 chondral injury distal lateral medial femoral condyle/grade 3 4 chondral injury medial patellar facet Procedure(s) Performed: Right knee arthroscopic patellar chondroplasty/medial femoral chondrectomy Anesthesia: OLUA Surgeon: Darrel Barrera Estimated Blood Loss (ml): 10 Pathology: none sent Condition: stable Disposition: PACU Indications for Procedure: The patient's a 47-year-old female presents with progressive right knee pain and mechanical symptoms despite conservative measures. A discussion of the risks and benefits of operative intervention versus continued conservative measures made with patient. She opted to proceed with surgery. Operative risks to include infection, neurovascular injury, development of blood clots, possible incomplete versus of symptoms, possible worsening symptoms and need for subsequent procedures was discussed. Informed consent was obtained. Operative Findings: As below Description of Procedure: The patient was brought to the operating room, and after induction of general anesthesia examined the right knee. Collaterals were stable, Clinton was negative, and posterior drawer was negative. The right lower extremity was prepped and draped in a normal fashion. A superior lateral portal was made through a 3 mm skin incision superior and lateral to the patella. This was used for outflow. A lateral portal was made through a 5 mm vertical skin incision lateral to the patella tendon above the joint line. Diagnostic arthroscopy was performed. On inspection of the medial compartment the medial meniscus was stable and intact. A grade 2 chondral injury was noted involving the distal lateral portion of the medial femoral condyle. There was a loose chondral fragment debrided back to stable base with a motorized shaver. On inspection of the notch, the anterior cruciate ligament appeared to be intact. On inspection of the lateral compartment no significant meniscal or cartilage pathology was noted.. On inspection of the patellofemoral articulation a grade 3/4 chondral injury was noted involving the medial patella facet. There was a loose chondral fragment debrided back to stable base with a motorized shaver. A corresponding grade 2/3 chondral defect was noted involving the central portion of the femoral trochlea. The gutters were clear debris. The knee was then thoroughly irrigated. The portals were closed with Steri-Strips. A sterile dressing was applied in addition to a compression stocking. The patient was awoken from general anesthesia and transferred to recovery room in good condition. Blood loss was estimated at 10 mL. No complications were incurred.
[2018-05-09] MEDS: fentaNYL (PF) 50 MCG/ML 2 ML AMP IV PRN ×2 (08:59→09:11)
[2018-05-09 09:14] VITALS: TEMP 97.3
[2018-05-09] MEDS: HYDROmorphone 1 MG/ML 1 ML SYRINGE IVP ONE ×4 (09:21→09:43)
[2018-05-09 10:06] VITALS: RESP 16
[2018-05-09 10:20] VITALS: BP 106/68; PULSE 68
== END | disposition home or self-care (01) ==
LOC: OR 06:50
PROVIDERS: ATTEND Orthopaedic Surgery
DX: M23.8X1 Other internal derangements of right knee (principal); M19.90 Unspecified osteoarthritis, unspecified site; K21.9 Gastro-esophageal reflux disease without esophagitis; J45.909 Unspecified asthma, uncomplicated; Z79.1 Long term (current) use of non-steroidal anti-inflammatories (NSAID); Z79.3 Long term (current) use of hormonal contraceptives; Z88.5 Allergy status to narcotic agent
CPT/HCPCS: 29877; J2250; J1100; J2175; J2405; J0171; J2001; J3010; J1885; J1170; J0690; J2704